=== PATIENT | male | born 1955 | race Caucasian/White ===

== ENCOUNTER 2017-06-23 12:01 | Emergency (ER) | payer OTHER ==
[~2017-06-23] VITALS: Ht 182.9 cm; Wt 118.8 kg
[~2017-06-23 12:01] MED LIST: ASPIRIN EC81 MG PO; COZAAR50 MG PO; HYDROXYZINE HCL50 MG PO; NITROGLYCERIN0.4 MG SL; PAMELOR10 MG PO; VISINE TEARS DR15 ML OP; ZESTRIL5 MG PO; ZOCOR20 MG PO; ZOLOFT100 MG PO; ZYRTEC10 MG PO
--- NOTE | 2017-06-23 16:58 | EKG ---
[facility] [address] [facility] [place] [address] Signed Sinus rhythm with premature atrial complexes Left axis deviation Left ventricular hypertrophy with QRS widening Left anterior fascicular block Abnormal ECG When compared with ECG of 06-AUG-2016 19:34, Right bundle branch block is no longer present Confirmed by APARNA OTT MD ([id number]) on 06/23/2017 4:57:48 PM Electronically Signed By: APARNA OTT MD 06/23/17 1658 PATIENT NAME: ANI PAN Electrocardiogram DATE OF : 51 PHYSICIAN: APARNA OTT MD REPORT #: [id number] REPORT IS CONFIDENTIAL AND NOT TO BE RELEASED WITHOUT AUTHORIZATION
== END 2017-06-23 13:30 | disposition home or self-care (01) ==
LOC: ED 12:01
DX: R07.89 Other chest pain (principal); I10 Essential (primary) hypertension; J44.9 Chronic obstructive pulmonary disease, unspecified; E78.5 Hyperlipidemia, unspecified; F32.9 Major depressive disorder, single episode, unspecified; I25.2 Old myocardial infarction; Z87.891 Personal history of nicotine dependence; Z88.2 Allergy status to sulfonamides; Z88.8 Allergy status to other drugs, medicaments and biological substances; Z79.899 Other long term (current) drug therapy; Z79.82 Long term (current) use of aspirin
CPT/HCPCS: 36415; 71010; 80053; 84484; 85025; 93005; 93010; 99283

== ENCOUNTER 2017-07-16 05:53 | Day surgery (SDC) | payer OTHER ==
[~2017-07-16] VITALS: Ht 182.9 cm; Wt 127.0 kg
[2017-07-16] MEDS ORDERED: VENTOLIN HFA18 GM INH (06:11)
--- NOTE | 2017-07-16 08:57 | NUR ---
07/16/17 0857 Keke Deutsch 0812 PT ARRIVED IN PACU SLEEPY WITH ORAL AIRWAY. 0821 ORAL AIRWAY REMOVED. 0830 PT AWAKE TALKING TO STAFF. 0845 DC INSTRUCTIONS GIVEN TO PT/GUARD.
--- NOTE | 2017-07-16 09:18 | NUR ---
PT WAITING FOR SCOPES. FIRST FOR EITHER PROCEDURE. GUARDS BY HIS SIDE-HE SEEMED COMFORTABLE AND REQUESTED PRAYER WILL FOLLOW NEEDED
--- NOTE | 2017-07-23 18:42 | OR ---
[facility] [address] [place], [place] [address] Signed DATE OF OPERATION: 07/16/2017 SURGEON: Vikas Jaimes MD PREOPERATIVE DIAGNOSES: 1. Melena. 2. Rectal bleeding. 3. Maternal uncle with colon cancer in his 60s. 4. Probable history of colon cancer in brother. POSTOPERATIVE DIAGNOSES: 1. Moderate diffuse gastritis. 2. Unremarkable colonoscopy. PROCEDURES: 1. EGD with LAURA test and biopsies of the antrum and body of the stomach. 2. Colonoscopy without biopsy. ESTIMATED BLOOD LOSS: None. INDICATIONS: Collins is a 61-[facility]-old gentleman [facility] [place]. He was asked to see me for both upper and lower endoscopy. He describes black tarry stool. He said once in a while he does see red blood when he wipes. He explained that his maternal uncle had colon cancer in his early 60s. He is pretty certain his brother had colon cancer as well. Collins himself has never had upper or lower endoscopy. 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 He also takes aspirin. He does not take any medicine for the stomach. In addition, he has a pacemaker from 2013. I explained to Collins upper and lower endoscopy. He understands there is risk including but not limited to gas bloating, crampy abdominal pain, bleeding, perforation requiring surgery, and missed diagnosis. We also discussed the need for IV conscious sedation. Given his body mass index, his large thick neck, his facial hair, and his pacemaker and so forth, we decided an anesthesia provider was needed to help us with increased monitoring and sedation with propofol. He had expressed understanding and wished to proceed. PROCEDURE: Collins was taken into our endoscopy suite and placed in the supine semi-recumbent position. The posterior oropharynx was anesthetized with Hurricaine spray. A bite block Electronically Signed By: VIKAS JAIMES MD 07/23/17 1842 PATIENT NAME: COLLINS PAN OPERATIVE REPORT DATE OF : 51 PHYSICIAN: VIKAS JAIMES MD REPORT #: [id number] REPORT IS CONFIDENTIAL AND NOT TO BE RELEASED WITHOUT AUTHORIZATION [facility] [address] [place], [place] [address] Signed was utilized for the case. He was given IV sedation with propofol per our nurse auto radiator specialist. The adult gastroscope was introduced and advanced under direct visualization with a camera out into the third portion of the duodenum. The duodenum and pyloric channel were unremarkable. However, the stomach showed diffuse streaky moderate gastritis throughout. There were no ulcerations in the stomach. We took biopsies from the antrum and body of the stomach for pathologic review. We also took a biopsy from the antrum for LAURA test. Upon retroflexion of the scope, there were no gastric or esophageal varices. There was no hiatal hernia. The scope was withdrawn up through the area of the GE junction, which was compliant without stricture. There was minimal, if any, disruption to his Z-line. There was no Jones's mucosa. No distal esophagitis. The middle and upper esophagus was unremarkable. After this, the gas was suctioned out and the gastroscope was removed. Collins tolerated the procedure quite well. Collins was then rotated into the left lateral decubitus position. He was maintained on IV sedation with his IV propofol. A digital rectal exam was performed and he does have a slightly enlarged indurated prostate, the right is certainly more prominent than the left. After this, the adult colonoscope was introduced and advanced under direct visualization of camera. Collins is a large man with a large abdomen. We made it all the way up close to the cecum and ileocecal valve, but we were not able to advance the scope any further. We rotated him into the supine position and we used abdominal compression and still we could not get the scope to advance that last little bit. We could see the ileocecal valve and into the cecum. The only place we could see was immediately behind the ileocecal valve. His prep was overall good. He had few areas of liquid particulate stool matter that I could not quite irrigate and suction out completely. He might consider just a little additional bowel prep all on his next colonoscopy. The scope was then slowly withdrawn. We saw no pathology throughout his entire colon or rectum. Specifically, no polyps and no diverticulosis. Upon retroflexion of the scope, we saw no pathology above the anal canal. After this, the gas was suctioned out. The colonoscope removed. Drill tolerated his colonoscopy quite well. RECOMMENDATIONS: I am to rule. I will follow up with Regis about a month in the office. In the meantime, he should consider starting a proton pump inhibitor to clear up his gastritis. In addition, he might review his prostate exam with his primary care providers along with his PSA level. Because of his family history, he should have a colonoscopy every 5 years. Electronically Signed By: VIKAS JAIMES MD 07/23/17 1842 PATIENT NAME: COLLINS PAN FERGUSON OPERATIVE REPORT DATE OF : 51 PHYSICIAN: VIKAS JAIMES MD REPORT #: [id number] REPORT IS CONFIDENTIAL AND NOT TO BE RELEASED WITHOUT AUTHORIZATION [facility] [address] [place] [address] Signed Vikas Jaimes MD ALB/MODL /[id number] cc: Russell Oquendo MD Electronically Signed By: VIKAS JAIMES MD 07/23/17 1842 PATIENT NAME: COLLINS PAN ANABELL OPERATIVE REPORT DATE OF : 51 PHYSICIAN: VIKAS JAIMES MD REPORT #: [id number] REPORT IS CONFIDENTIAL AND NOT TO BE RELEASED WITHOUT AUTHORIZATION
== END 2017-07-16 08:47 | disposition home or self-care (01) ==
LOC: DS 05:53 → OPS 05:53 → DS 06:45
PROVIDERS: Colon & Rectal Surgery
PROC: 0DJD8ZZ Inspection of Lower Intestinal Tract, Via Natural or Artificial Opening Endoscopic (ICD-10-PCS; principal; 2017-07-16 06:45)
PROC: 0DB78ZX Excision of Stomach, Pylorus, Via Natural or Artificial Opening Endoscopic, Diagnostic (ICD-10-PCS; 2017-07-16 06:45)
DX: K29.50 Unspecified chronic gastritis without bleeding (principal); E66.9 Obesity, unspecified; Z68.38 Body mass index [BMI] 38.0-38.9, adult; Z86.19 Personal history of other infectious and parasitic diseases; Z80.0 Family history of malignant neoplasm of digestive organs; Z95.0 Presence of cardiac pacemaker; Z90.49 Acquired absence of other specified parts of digestive tract; Z90.89 Acquired absence of other organs; Z88.8 Allergy status to other drugs, medicaments and biological substances; Z88.1 Allergy status to other antibiotic agents; Z88.2 Allergy status to sulfonamides; Z88.6 Allergy status to analgesic agent; Z79.82 Long term (current) use of aspirin; Z79.899 Other long term (current) drug therapy; Z98.890 Other specified postprocedural states
CPT/HCPCS: 36415; 86677; 88305; 99156; 99157; J2704; J7120

== ENCOUNTER 2017-10-18 22:17 | Emergency (ER) | payer OTHER ==
[~2017-10-18] VITALS: Ht 182.9 cm; Wt 127.0 kg
--- OUTSIDE RECORDS SUMMARY | ~2017-10-18 | XMS | Encounter Summary ---
Demographics + + + | Address | [address] | | | [place] [address] | + + + | Home Phone | | + + + | Preferred Language | Unknown | + + + | Marital Status | Single | + + + | Faith Affiliation | Unknown | + + + | Race | Unknown | + + + | Ethnic Group | Unknown | + + + Author + + + | Author | [facility] | + + + | Organization | [facility] | + + + | Address | Unknown | + + + | Phone | Unavailable | + + + Support + + +---------+ + | Name | Relationship | Address | Phone | + + +---------+ + | Corrections,Eastern | ECON | Unknown | | | [place] | | | | + + +---------+ + Care Team Providers + +------+ + | Care Skein Tier Name | Role | Phone | + +------+ + PCP | Unavailable | + +------+ + Reason for Visit + + + | Reason | Comments | + + + | Pacemaker Check | remote | + + + Encounter Details +--------+ + + + + | Date | Type | Department | Care Team | Description | +--------+ + + + + | 08/15/ | Documentati | [facility] | Harshil Gambino | Pacemaker Check | | 2018 | on Only | Cardiology [facility] | | (remote) | | | | [address] | | | | | | [place] | | | | | | [address] | | | | | | [phone] | | | +--------+ + + + + Social History + +-------+ +--------+ + | Tobacco Use | Types | Packs/Day | Years | Date | | | | | Used | | + +-------+ +--------+ + | Former Smoker | | | | Quit: 05/06/2010 | + +-------+ +--------+ + + +---+---+---+ | Smokeless Tobacco: | | | | | Never Used | | | | + +---+---+---+ + + +---------+ + | Alcohol Use | Drinks/We | oz/Week | Comments | | | ek | | | + + +---------+ + | No | | | | + + +---------+ + + + + | Sex Assigned at | Date Recorded | | | | + + + | Not on file | | + + + as of this encounter Progress Notes Harshil Gambino L - 08/15/2017 9:15 AM [employer] remote check Battery Longevity/Status: 8.5 yrs 2.79V Lead Impedance: WNL Thresholds: WNL Measured P/ R Wave: >2.8mV 16.0->22.4mV Ap: 52.9% RVp: 1.5% Anti-coagulated: ASA: 81mg Events: since 01/28/17- 42 DEPUTY GRAND JURY <0.1% of time. 15 AHR episodes, longest 04/24/17 4 min Max V rate 179 bpm. no egm. fastest 06/03/17 1min 26sec Avg V rate 119bpm, Hard to tell if it is PVCs with retr ograde 1:1 or Atrial undersensing. see EGMs. Plan: Continue at home monitoring. Last saw Provider: 03/07/16 Tech: Trey Holland [place] [facility] Plan of Treatment +--------+ + + + + | Date | Type | Specialty | Care Team | Description | +--------+ + + + + | 11/05/ | Documentati | Cardiology | | | | 2018 | on Only | | | | +--------+ + + + + as of this encounter Visit Diagnoses + + | Diagnosis | + + | Atrioventricular block, complete (HCC) - Primary | + + | Atrioventricular block, complete | + +"
--- OUTSIDE RECORDS SUMMARY | ~2017-10-18 | XMS | Encounter Summary ---
Demographics + + + | Address | [address] | | | [place] [address] | + + + | Home Phone | | + + + | Preferred Language | Unknown | + + + | Marital Status | Single | + + + | Yarsanism Affiliation | Unknown | + + + | Race | Unknown | + + + | Ethnic Group | Unknown | + + + Author + + + | Author | [facility] [employer] | + + + | Organization | [facility] [employer] [facility] | + + + | Address | Unknown | + + + | Phone | Unavailable | + + + Support + + +---------+ + | Name | Relationship | Address | Phone | + + +---------+ + | Corrections,Eastern | ECON | Unknown | | | [place] | | | | + + +---------+ + Care Team Providers + +------+ + | Care Sander Wooden Pencils Name | Role | Phone | + +------+ + PCP | Unavailable | + +------+ + Encounter Details +--------+ + + + + | Date | Type | Department | Care Team | Description | +--------+ + + + + | 08/08/ | Telephone | [facility] | Harshil Gambino | | | 2017 | | Cardiology [facility] | | | | | | [address] | | | | | | [place] | | | | | | [address] | | | | | | [phone] | | | +--------+ + + + [...] + + + as of this encounter Plan of Treatment +--------+ + + + + | Date | Type | Specialty | Care Team | Description | +--------+ + + + + | 11/05/ | Documentati | Cardiology | | | | 2018 | on Only | | | | +--------+ + + + + as of this encounter Visit Diagnoses Not on filein this encounter"
--- OUTSIDE RECORDS SUMMARY | ~2017-10-18 | XMS | Clinical Summary ---
Demographics + + + | Address | [address] | | | [place] [address] | + + + | Home Phone | | + + + | Preferred Language | Unknown | + + + | Marital Status | Single | + + + | Sikhism Affiliation | Unknown | + + + | Race | Unknown | + + + | Ethnic Group | Unknown | + + + Author + + + | Author | [facility] | + + + | Organization | [facility] | + + + | Address | Unknown | + + + | Phone | Unavailable | + + + Support + + +---------+ + | Name | Relationship | Address | Phone | + + +---------+ + | Corrections,Eastern | ECON | Unknown | | | [place] | | | | + + +---------+ + Care Team Providers + +------+ + | Care Assembler Bicycle Name | Role | Phone | + +------+ + PP | Unavailable | + +------+ + Allergies + + + + + + | Active Allergy | Reactions | Severity | Noted | Comments | | | | | Date | | + + + + + + | Acetaminophen | Anaphylaxis | High | /24/20 | | | | | | 13 | | + + + + + + | Ibuprofen | Itching | Medium | 10/24/20 | | | | | | 13 | | + + + + + + | Sulfa Antibiotics | Hallucinations | Medium | 10/24/20 | | | | | | 13 | | + + + + + + | Tetracycline | Anaphylaxis | High | 05/06/20 | | | | | | 13 | | + + + + + + Current Medications + + +-------+---------+------+------+-------+ | Prescription | Sig. | Disp. | Refills | Star | End | Statu | | | | | | t | Date | s | | | | | | Date | | | + + +-------+---------+------+------+-------+ | aspirin EC 81 MG | Take 81 mg by mouth | | | | | Activ | | EC tablet | daily with | | | | | e | | | breakfast. | | | | | | + + +-------+---------+------+------+-------+ | cetirizine | Take 10 mg by mouth | | | | | Activ | | (ZYRTEC) 10 MG | daily. | | | | | e | | tablet | | | | | | | + + +-------+---------+------+------+-------+ | simvastatin | Take 20 mg by mouth | | | | | Activ | | (ZOCOR) 20 MG tablet | nightly. | | | | | e | + + +-------+---------+------+------+-------+ | albuterol | Inhale 2 puffs into | | | | | Activ | | (PROVENTIL HFA) 108 | the lungs every 4 | | | | | e | | (90 BASE) MCG/ACT | (four) hours as | | | | | | | inhaler | needed. | | | | | | + + +-------+---------+------+------+-------+ | | 1 drop 4 (four) | | | | | Activ | | naphazoline-pheniram | times daily. | | | | | e | | ine (VISINE-A) | | | | | | | | 0.025-0.3 % | | | | | | | | ophthalmic solution | | | | | | | + + +-------+---------+------+------+-------+ | sertraline | Take 200 mg by mouth | | | | | Activ | | (ZOLOFT) 100 MG | nightly. | | | | | e | | tablet | | | | | | | + + +-------+---------+------+------+-------+ | lisinopril | Take 10 mg by mouth | | | | | Activ | | (PRINIVIL,ZESTRIL) | daily. | | | | | e | | 10 MG tablet | | | | | | | + + +-------+---------+------+------+-------+ | diphenhydrAMINE | Take 50 mg by mouth | | | | | Activ | | (BENADRYL) 50 MG | every 6 (six) hours | | | | | e | | capsule | as needed. | | | | | | + + +-------+---------+------+------+-------+ | ipratropium | Take 0.5 mg by | | | | | Activ | | (ATROVENT) 0.02 % | nebulization 4 | | | | | e | | nebulizer solution | (four) times daily. | | | | | | + + +-------+---------+------+------+-------+ | nitroGLYCERIN | Place 0.4 mg under | | | | | Activ | | (NITROSTAT) 0.4 MG | the tongue every 5 | | | | | e | | SL tablet | (five) minutes as | | | | | | | | needed for Chest | | | | | | | | pain. | | | | | | + + +-------+---------+------+------+-------+ | isosorbide | Take 30 mg by mouth | | | | | Activ | | mononitrate (IMDUR) | daily. | | | | | e | | 30 MG 24 hr tablet | | | | | | | + + +-------+---------+------+------+-------+ | losartan (COZAAR) | Take 50 mg by mouth | | | | | Activ | | 50 MG tablet | daily. | | | | | e | + + +-------+---------+------+------+-------+ | Alpha-Lipoic Acid | Take 600 mg by mouth | | | | | Activ | | 600 MG CAPS | 2 (two) times | | | | | e | | | daily. | | | | | | + + +-------+---------+------+------+-------+ | Ipratropium | Inhale 200 mg into | | | | | Activ | | [place] HFA | the lungs. | | | | | e | | (ATROVENT HFA IN) | | | | | | | + + +-------+---------+------+------+-------+ | docusate sodium | Take 250 mg by mouth | | | | | Activ | | (COLACE) 250 MG | daily. | | | | | e | | capsule | | | | | | | + + +-------+---------+------+------+-------+ | OXYMETAZOLINE HCL, | Apply 15 mg to eye. | | | | | Activ | | OPHTH, 0.025 % SOLN | | | | | | e | + + +-------+---------+------+------+-------+ | ketotifen | 1 drop 2 (two) times | | | | | Activ | | (SANDRATOR) 0.025 % | daily. | | | | | e | | ophthalmic solution | | | | | | | + + +-------+---------+------+------+-------+ Active Problems + + + | Problem | Noted Date | + + + | Pacemaker | 12/13/2015 | + + + + + | Overview: Medtronic - Pacemaker. | | Model-S/N: Eleni [id number] - [id number] | + + + + + | Dizziness | 08/11/2013 | + + + | Chest pain, unspecified | 05/27/2013 | + + + Encounters +--------+ + + + + | Date | Type | Specialty | Care Team | Description | +--------+ + + + + | 08/15/ | Documentati | | Harshil Gambino | Pacemaker Check | | 2017 | on Only | | | (remote) | +--------+ + + + + | 08/08/ | Telephone | | Harshil Gambino | | | 2017 | | | | | +--------+ + + + + from Last 3 Months Family History + + +------+ + | Medical History | Relation | Name | Comments | + + +------+ + | Heart attack | Father | | | + + +------+ + | Heart disease | Father | | | + + +------+ + | Heart attack | Mother | | | + + +------+ + | Heart disease | Mother | | | + + +------+ + + +------+ + + | Relation | Name | Status | Comments | + +------+ + + | Father | | | | + +------+ + + | Mother | | | | + +------+ + + Social History + +-------+ +--------+ [...] on file | | + + + Last Filed Vital Signs + + + + | Vital Sign | Reading | Time Taken | + + + + | Blood Pressure | 130/78 | 03/07/2016 11:30 AM PDT | + + + + | Pulse | 60 | 03/07/2016 11:30 AM PDT | + + + + | Temperature | 36.8 C (98.2 F) | 09/18/2013 4:15 AM PST | + + + + | Respiratory Rate | 18 | 03/07/2016 11:30 AM PDT | + + + + | Oxygen Saturation | 95% | 03/07/2016 11:30 AM PDT | + + + + | Inhaled Oxygen | - | - | | Concentration | | | + + + + | Weight | 121.1 kg (267 lb) | 03/07/2016 11:30 AM PDT | + + + + | Height | 182.9 cm (6') | 03/07/2016 11:30 AM PDT | + + + + | Body Mass Index | 36.21 | 03/07/2016 11:30 AM PDT | + + + + Plan of Treatment +--------+ + + + + | Date | Type | Specialty | Care Team | Description | +--------+ + + + + | 11/05/ | Documentati | | | | | 2017 | on Only | | | | +--------+ + + + + + + + + + | Health Maintenance | Due Date | Last Done | Comments | + + + + + | Vaccine: | | | | | Dtap/Tdap/Td (1 - | 3 | | | | Tdap) | | | | + + + + + | Colon Cancer | | | | | Screening | 4 | | | | (Colonoscopy) | | | | + + + + + | Vaccine: Zoster (#1) | | | | | | 4 | | | + + + + + | Statin Therapy | | | | | (optimal intensity) | 7 | | | + + + + + | Vaccine: Influenza | | | | | (Season Ended) | 8 | | | + + + + + Implants + +--------+--------+ +--------+--------+--------+ | Implanted | Type | Area | Manufacture | Device | Expira | Model | | | | | r | | tion | / | | | | | | Identi | Date | Serial | | | | | | fier | | / Lot | + +--------+--------+ +--------+--------+--------+ | Generator | Pacema | Right: | [employer]TR[employer]IC | | 01/24/ | [id number] | | Adapta-09/17/2013Implanted: | ker | Chest | | | 2014 | | | 2013 by Mario Cavanaugh | | Wall | | | | /[id number] | | T, DO (Quantity not on | | | | | | [id number] | | file)Explanted: | | | | | | / | + +--------+--------+ +--------+--------+--------+ | V Lead Capsurefix Novus | Pacema | Right: | MEDTRONIC | | 07/22/ | [id number] | | 52cm-09/17/2013Implanted: | ker | Chest | | | 2015 | 2 | | 2013 by Mario Cavanaugh | | Wall | | | | /[id number] | | T, DO (Quantity not on | | | | | | [id number] | | file)Explanted: | | | | | | / | + +--------+--------+ +--------+--------+--------+ | A Lead Capsurefix Novus | Pacema | Right: | [employer]IC | | 07/06/ | [id number] | | 45cm-09/17/2013Implanted: | ker | Chest | | | 2014 | 5 | | 2013 by Mario Cavanaugh | | Wall | | | | /[id number] | | T, DO (Quantity not on | | | | | | [id number] | | file)Explanted: | | | | | | / | + +--------+--------+ +--------+--------+--------+ Results Not on filefrom Last 3 Months Insurance + +--------+ +------+-------+---------+ | Payer | Benefi | Subscriber | Type | Phone | Address | | | t Plan | ID | | | | | | / | | | | | | | Group | | | | | + +--------+ +------+-------+---------+ | [employer] | FC-COR | [id number] | | | | | | RECTIO | | | | | | | NAL | | | | | | | HEALTH | | | | | | | | | | | | | | PARTNE | | | | | | | RS | | | | | + +--------+ +------+-------+---------+ + +--------+ +--------+ + + | Guarantor Name | Accoun | Relation to | Date | Phone | Billing Address | | | t Type | Patient | of | | | | | | | | | | + +--------+ +--------+ + + | CORRECTIONS,EASTERN | Correc | Other | [birth year] | Home: | [address] | | [place] | tional | | 1956 | [phone] | [place] | | | | | | [phone] | [address] | | | Facili | | | | | | | ty | | | | | + +--------+ +--------+ + +"
--- OUTSIDE RECORDS SUMMARY | ~2017-10-18 | XMS | Encounter Summary ---
Demographics + + + | Address | [address] | | | [place] [address] | + + + | Home Phone | | + + + | Preferred Language | Unknown | + + + | Marital Status | Single | + + + | Mandaeism Affiliation | Unknown | + + + | Race | Unknown | + + + | Ethnic Group | Unknown | + + + Author + + + | Author | [facility] [employer] | + + + | Organization | [facility] [facility] | + + + | Address | Unknown | + + + | Phone | Unavailable | + + + Support + + +---------+ + | Name | Relationship | Address | Phone | + + +---------+ + | Corrections,Eastern | ECON | Unknown | | | [place] | | | | + + +---------+ + Care Team Providers + +------+ + | Care Mechanical Assembly Name | Role | Phone | + [...] [place] | | | | | | [address] | | | | | | [phone] | | | +--------+ + + + [...] Harshil Gambino L - 08/15/2017 9:15 AM [employer] remote check Battery Longevity/Status: 8.5 yrs 2.79V Lead Impedance: WNL Thresholds: WNL Measured P/ R Wave: >2.8mV 16.0->22.4mV Ap: 52.9% RVp: 1.5% Anti-coagulated: ASA: 81mg Events: since 01/28/17- 42 PROCEDURES ANALYST <0.1% of time. 15 AHR episodes, longest 04/24/17 4 min Max V rate 179 bpm. no egm. fastest 06/03/17 1min 26sec Avg V rate 119bpm, Hard to tell if it is PVCs with retr ograde 1:1 or Atrial undersensing. see EGMs. Plan: Continue at home monitoring. Last saw Provider: 03/07/16 Tech: Trey Holland [place] [facility] encounter Plan of Treatment +--------+ [...]
--- OUTSIDE RECORDS SUMMARY | ~2017-10-18 | XMS | Clinical Summary ---
Demographics + + + | Address | [address] | | | [place] [address] | + + + | Home Phone | | + + + | Preferred Language | Unknown | + + + | Marital Status | Single | + + + | Alevism Affiliation | Unknown | + + + | Race | Unknown | + + + | Ethnic Group | Unknown | + + + Author + + + | Author | [facility] [employer] | + + + | Organization | [facility] [employer] | + + + | Address | Unknown | + + + | Phone | Unavailable | + + + Support + + +---------+ + | Name | Relationship | Address | Phone | + + +---------+ + | Corrections,Eastern | ECON | Unknown | | | [place] | | | | + + +---------+ + Care Team Providers + +------+ + | Care Rug Inspector Helper Name | Role | Phone | + [...] | | | | Activ | | [place] HFA | the lungs. | | | [...] Pacemaker. | | Model-S/N: Eleni ALVARADO01 - [id number] | + + + + + | [...] on | | | | | | [id number] | | file)Explanted: | | | | [...] on | | | | | | [id number] | | file)Explanted: | | | | [...] Other | [birth year] | Home: | [address] | | [place] | tional | | 1956 | [phone] | [place] | | | | | | [phone] | [phone] | | | Facili | | | | | | | ty | | | | | + +--------+ +--------+ + +"
--- OUTSIDE RECORDS SUMMARY | ~2017-10-18 | XMS | Encounter Summary ---
Demographics + + + | Address | [address] | | | [place] [address] | + + + | Home Phone | | + + + | Preferred Language | Unknown | + + + | Marital Status | Single | + + + | Restoration Affiliation | Unknown | + + + | Race | Unknown | + + + | Ethnic Group | Unknown | + + + Author + + + | Author | [facility] | + + + | Organization | [facility] | + + + | Address | Unknown | + + + | Phone | Unavailable | + + + Support + + +---------+ + | Name | Relationship | Address | Phone | + + +---------+ + | Corrections,Eastern | ECON | Unknown | | | [place] | | | | + + +---------+ + Care Team Providers + +------+ + | Care Radio Dispatcher Name | Role | Phone | + [...] [place] | | | | | | [address] | | | | | | [phone] | | | +--------+ + + + [...]
[~2017-10-18 22:17] MED LIST changes: +VENTOLIN HFA18 GM INH
[2017-10-19] MEDS ORDERED: BENADRYL25 MG PO (00:01)
[2017-10-19] MEDS ORDERED: ATROVENT HFA12.9 GM INH (00:02)
[2017-10-19] MEDS ORDERED: MONTELUKAST SOD10 MG PO (00:02)
[2017-10-19] MEDS ORDERED: CRESTOR20 MG PO (00:03)
[2017-10-19] MEDS ORDERED: PC TAR177 ML TOP (00:03)
[2017-10-19] MEDS ORDERED: RANITIDINE HCL300 MG PO (00:03)
[2017-10-19] MEDS ORDERED: TRIPLE ANTIBIO1 EACH TOP (00:04)
[2017-10-19] MEDS ORDERED: [UNRECOGNIZED DRUG - OTHER] TOP (00:04)
--- NOTE | 2017-10-19 06:26 | EKG ---
[facility] [address] [place] [address] Signed Atrial-paced rhythm with occasional and consecutive sinus complexes and premature atrial complexes Right bundle branch block Left anterior fascicular block Bifascicular block Left ventricular hypertrophy with repolarization abnormality Abnormal ECG When compared with ECG of 23-JUN-2017 12:05, Electronic atrial pacemaker has replaced Sinus rhythm (RBBB and left anterior fascicular block) is now present Confirmed by YAIR CORNEJO MD ([id number] on 10/19/2017 6:25:49 AM Electronically Signed By: YAIR CORNEJO MD 10/19/17 0626 PATIENT NAME: ANI PAN Electrocardiogram DATE OF : 51 PHYSICIAN: YAIR CORNEJO MD REPORT #: [id number] REPORT IS CONFIDENTIAL AND NOT TO BE RELEASED WITHOUT AUTHORIZATION
== END 2017-10-19 00:35 | disposition home or self-care (01) ==
LOC: ED 22:17
DX: R07.9 Chest pain, unspecified (principal); I10 Essential (primary) hypertension; J44.9 Chronic obstructive pulmonary disease, unspecified; F32.9 Major depressive disorder, single episode, unspecified; Z87.891 Personal history of nicotine dependence; Z88.2 Allergy status to sulfonamides; Z88.1 Allergy status to other antibiotic agents; Z88.6 Allergy status to analgesic agent; Z79.899 Other long term (current) drug therapy; Z79.82 Long term (current) use of aspirin
CPT/HCPCS: 71045; 80053; 84484; 85025; 93005; 93010; 96374; 99284; J1885

== ENCOUNTER 2018-01-01 10:57 | Emergency (ER) | payer OTHER ==
[~2018-01-01] VITALS: Ht 182.9 cm; Wt 127.0 kg
[~2018-01-01 10:57] MED LIST changes: +ATROVENT HFA12.9 GM INH; +BENADRYL25 MG PO; +CRESTOR20 MG PO; +MONTELUKAST SOD10 MG PO; +PC TAR177 ML TOP; +RANITIDINE HCL300 MG PO; +TRIPLE ANTIBIO1 EACH TOP; +[UNRECOGNIZED DRUG - OTHER] TOP
[2018-01-01] MEDS ORDERED: PREDNISONE20 MG PO (13:49)
[2018-01-01] MEDS ORDERED: LEVAQUIN500 MG PO (13:49)
--- NOTE | 2018-01-01 18:27 | EKG ---
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
== END 2018-01-01 14:04 | disposition home or self-care (01) ==
LOC: ED 10:57
DX: J45.909 Unspecified asthma, uncomplicated (principal); I10 Essential (primary) hypertension; F32.9 Major depressive disorder, single episode, unspecified; E78.5 Hyperlipidemia, unspecified; I25.2 Old myocardial infarction; J44.9 Chronic obstructive pulmonary disease, unspecified; Z87.891 Personal history of nicotine dependence; Z88.2 Allergy status to sulfonamides; Z88.8 Allergy status to other drugs, medicaments and biological substances; Z79.899 Other long term (current) drug therapy; Z79.82 Long term (current) use of aspirin
CPT/HCPCS: 71045; 72170; 80053; 81001; 83880; 84484; 85025; 93005; 93010; 94640; 96374; 99284; J2930